=== PATIENT | female | born 1965 | race African-American/Black ===

== ENCOUNTER → 2017-10-31 | Outpatient (CLI) | payer OTHER | END | disposition home or self-care (01) | LOC: MAMMO 07:59 | DX: Z12.31 Encounter for screening mammogram for malignant neoplasm of breast (principal) | CPT/HCPCS: 77067 ==

== ENCOUNTER → 2019-02-11 | Outpatient (CLI) | payer BC ==
--- NOTE | 2019-02-11 09:34 | RAD ---
DATE: 02/11/2019 EXAM: DIGITAL SCREEN BILAT W/CAD HISTORY: Routine screening COMPARISON: 12/16/2012, 10/31/2017 This study was interpreted with the benefit of Computerized Aided Detection (CAD). Breast Density: FATTY The breast parenchyma is primarily fatty replaced. Breast parenchyma level density A. FINDINGS: There is an unchanged benign-appearing lymph node noted type density in the lateral aspect of the right breast. No new or enlarging breast densities are seen. No spiculated mass or architectural distortion is evident. Benign type calcifications are present. No suspicious microcalcifications have developed. IMPRESSION: There is no mammographic evidence of malignancy in either breast. BI-RADS CATEGORY: 2 BENIGN FINDING(S) RECOMMENDED FOLLOW-UP: 12M 12 MONTH FOLLOW-UP PQRS compliance statement: Patient information was entered into a reminder system with a target due date for the next mammogram. Mammography is a sensitive method for finding small breast cancers, but it does not detect them all and is not a substitute for careful clinical examination. A negative mammogram does not negate a clinically suspicious finding and should not result in delay in biopsying a clinically suspicious abnormality. "Our facility is accredited by the [employer] Mammography Program."
== END | disposition home or self-care (01) ==
LOC: MAMMO 07:50
PROVIDERS: ATTEND Internal Medicine
DX: Z12.31 Encounter for screening mammogram for malignant neoplasm of breast (principal)
CPT/HCPCS: 77067